=== PATIENT | male | born 1990 | race Caucasian/White ===

== ENCOUNTER 2020-10-26 01:03 | Emergency (ER) | payer OTHER ==
[~2020-10-26] VITALS: Ht 175.3 cm; Wt 77.1 kg
[2020-10-26] MEDS ORDERED: IV NS 1000 ML 1,000 ML IV ONE ×3 (01:30)
[2020-10-26] MEDS ORDERED: PROCHLORPERAZINE EDISYLATE 10 MG/2 ML VIAL IV ONE (01:30)
[2020-10-26] MEDS ORDERED: HYDROMORPHONE 1 MG/1 ML DISP.SYRIN IV ONE (01:30)
--- NOTE | 2020-10-26 01:30 | NUR ---
1st bag 1L NS bolus LAC #18 start time 130 AM endtime 230 AM 2nd bag 1L NS bolus LAC#18 Start Time 130 AM Y connector endtime 230 AM 3rd BAg 1L NS bolus LAC #18 started 230AM endtime 330 AM
[2020-10-26] MEDS ORDERED: HYDROMORPHONE 1 MG/1 ML DISP.SYRIN ONE (01:38)
[2020-10-26] MEDS ORDERED: PROCHLORPERAZINE EDISYLATE 10 MG/2 ML VIAL ONE (01:38)
[2020-10-26 01:57] LABS: HEMATOCRIT 43.8 % (36.7-47.1); MEAN CORPUSCULAR HEMOGLOBIN 30.5 uug (23.8-33.4); MEAN CORPUSCULAR VOLUME 90.4 fL (73.0-96.2); PLATELET COUNT (AUTO) 275 K/uL (152-348)
[2020-10-26 02:06] LABS: CREATININE 1.2 mg/dL (0.6-1.3); POTASSIUM 3.6 mmol/L (3.5-5.1)
--- NOTE | 2020-10-26 02:18 | NUR ---
Robert ma in [facility] - 10/26/20 at 0255 by [id number] Medically cleared by Dr Avila.
[2020-10-26] MEDS ORDERED: PROC25SU31 RC (03:46)
[2020-10-26] MEDS ORDERED: PROC10TA29 PO (03:46)
[2020-10-26] MEDS ORDERED: OXYC-128 PO (03:46)
[2020-10-26 03:50] VITALS: BP 134/73
--- NOTE | 2020-10-26 03:56 | NUR ---
IV removed. Catheter intact and site benign. Pressure and 4x4 gauze applied to site. No bleeding noted.
--- NOTE | 2020-10-26 03:59 | NUR ---
Patient discharged to home in stable conditionwith LEFT taking patient home. Written and verbal after care instructions given. Patient verbalizes understanding of instructions. Stressed follow up or return to ER for worsening s/s.
== END 2020-10-26 03:53 | disposition home or self-care (01) ==
LOC: ER 01:13
DX: R10.30 Lower abdominal pain, unspecified (principal); R11.2 Nausea with vomiting, unspecified; E86.0 Dehydration; Z91.041 Radiographic dye allergy status; R00.0 Tachycardia, unspecified
CPT/HCPCS: 36415; 80048; 85025; 96361; 96374; 96375; 99284; J0780; J1170; A4663; J7030